=== PATIENT | female | born 1955 | race Caucasian/White ===

== ENCOUNTER 2025-06-10 15:24 | Emergency (ER) | payer MEDICARE ==
[2025-06-10] VITALS (7 sets, daily range): PULSE 86–126; RESP 28–51; O2SAT 80–89
[~2025-06-10] VITALS: Ht 157.5 cm; Wt 48.5 kg
[~2025-06-10 15:24] MED LIST: 0.9% SODIUM CHLORIDE 1,000 ML BAG ONE; 0.9% SODIUM CHLORIDE 10 ML SYRINGE IVP ONE; ATROPINE SULFATE 0.1 MG/ML 10 ML SYRINGE IVP ONE; CALCIUM CHLORIDE 100 MG/ML 10 ML SYRINGE IVP ONE; EPINEPHrine 1:10,000 [1 MG/10 ML] SYRINGE ONE; SODIUM BICARBONATE [ADULT] 8.4% 50 MEQ/50 ML SYRINGE IVP ONE
[2025-06-10] MEDS: ALBUTEROL SULFATE 2.5 MG/0.5 ML NEB SOLUTION NEB ONE (15:50)
[2025-06-10] MEDS: IPRATROPIUM BROMIDE 0.5 MG/2.5 ML NEB SOLUTION NEB ONE (15:51)
[2025-06-10 15:56] LABS: PLATELET COUNT (AUTO) 215 K/uL (150-450); RED BLOOD CELL COUNT(AUTO) 4.01 MIL/uL (4.00-5.20); RED CELL DISTRIBUTION WIDTH 18.3 % (11.5-14.5); WHITE BLOOD COUNT (AUTO) 10.0 K/uL (4.5-11.0)
[2025-06-10 16:02] LABS: CALCIUM, TOTAL 8.5 mg/dL (8.8-10.5); CREATININE 0.97 mg/dL (0.60-1.30); GLOMERULAR FILTR. RATE CALC 57 mL/min (>60); GLUCOSE,RANDOM 126 mg/dL (70-110); SODIUM SERUM 132 mmol/L (136-145); UREA NITROGEN, BLOOD 25 mg/dL (7-18)
[2025-06-10 16:08] LABS: ASPARTATE AMINOTRANSFERASE 211.0 U/L (15-37); CREATINE KINASE, TOTAL ONLY 100.0 U/L (26-192); TOTAL PROTEIN, SERUM 7.0 g/dL (6.4-8.2)
[2025-06-10 16:08] LABS: COVID AG,FIA SOURCE NASAL SWAB
[2025-06-10 16:14] LABS: PLATELET MORPHOLOGY COMMENT LARGE PLTS PRESENT; RBC MORPHOLOGY COMMENT NORMAL RBC MORPH; TROPONIN I-HIGH SENSITIVITY 1044 ng/L (<51)
[2025-06-10 16:16] LABS: ABG BASE EXCESS 0.4 mmol/L (-2.0-3.0); ABG CARBOXYHEMOGLOBIN 0.4 % (0.5-1.5); ABG HCO3 24.0 mmol/L (21.0-28.0); ABG METHEMOGLOBIN 0.6 % (0.0-1.5); ABG OXYGEN CONTENT 16.3 mL/dL (15.0-23.0); ABG OXYGEN SATURATION 89.4 % (94.0-98.0); ABG OXYHEMOGLOBIN 88.5 % (94.0-98.0); ABG PCO2 54 mmHg (32.0-45.0); ABG PH 7.314 (7.350-7.450); ABG TOTAL HEMOGLOBIN 13.1 G/dL (12.0-16.0); FRACTIONATED INSPIRED OXYGEN 100.0 % (21-100.0); PO2, ARTERIAL BG 64.2 mmHg (83.0-108.0); SOURCE, BLOOD GAS ARTERIAL; TEMPERATURE, FAHRENHEIT, BG 98.6 FAHREN (96.0-98.6)
[2025-06-10 16:17] LABS: ABG A-A DIFF O2 595.3 mmHg (10-20.0); ALLEN TEST, BLOOD GAS Positive; O2 DEVICE,BLOOD GAS BIPAP (ROOM AIR); PATIENT RATE, BG 35.0 min.; SET RATE, BG 12.0 min.; SITE, BLOOD GAS RT RADIAL; SPONTANEOUS VT, BG 500 ml
[2025-06-10 16:26] LABS: SARS-COV2 (COVID) ANTIGEN,FIA Negative (Negative)
[2025-06-10 16:27] LABS: INFLUENZA TYPE A NEGATIVE FOR TYPE A (NEGATIVE); INFLUENZA TYPE B NEGATIVE FOR TYPE B (NEGATIVE)
[2025-06-10] MEDS ORDERED: FUROSEMIDE 20 MG/2 ML VIAL ONE (17:36)
[2025-06-10] MEDS: FUROSEMIDE 20 MG/2 ML VIAL IVP ONE (17:43)
[2025-06-10 18:05] LABS: TROPONIN I-HIGH SENSITIVITY 916 ng/L (<51)
[2025-06-10] MEDS: DEXMEDETOMIDINE 400 MCG/NS 100 ML IV PRN (18:26)
[2025-06-10] MEDS ORDERED: NOREPINEPHRINE 8 MG/0.9 % NACL 250 ML IV PRN (19:45)
[2025-06-10 19:51] LABS: CALCIUM, TOTAL 8.6 mg/dL (8.8-10.5); CREATININE 1.04 mg/dL (0.60-1.30); GLOMERULAR FILTR. RATE CALC 53.0 mL/min (>60); GLUCOSE,RANDOM 95.0 mg/dL (70-110); SODIUM SERUM 133.0 mmol/L (136-145); UREA NITROGEN, BLOOD 27.0 mg/dL (7-18)
[2025-06-10] MEDS ORDERED: ZOLPIDEM TARTRATE 5 MG TABLET PO PRN (20:30)
[2025-06-10] MEDS ORDERED: MAGNESIUM HYDROXIDE SUSPENSION 30 ML UDCUP PO PRN (20:30)
[2025-06-10] MEDS ORDERED: ONDANSETRON HCL 4 MG/2 ML VIAL IVP PRN (20:30)
[2025-06-10] MEDS ORDERED: HYDROCODONE/ACETAMINOPHEN 5-325 MG TABLET PO PRN (20:30)
[2025-06-10] MEDS ORDERED: IPRATROPIUM BROMIDE 0.5 MG/2.5 ML NEB SOLUTION NEB PRN (20:30)
[2025-06-10] MEDS ORDERED: ACETAMINOPHEN 325 MG TABLET PO PRN (20:30)
[2025-06-10] MEDS ORDERED: ALBUTEROL SULFATE 2.5 MG/0.5 ML NEB SOLUTION NEB PRN (20:30)
[2025-06-10] MEDS ORDERED: MORPHINE SULFATE 4 MG/ML SYRINGE IVP PRN (20:30)
[2025-06-10] MEDS ORDERED: BISACODYL 10 MG RECTAL RECTAL SUPPOSITORY PR PRN (20:30)
[2025-06-10] MEDS: PHENYLEPHRINE 200 MG/D5%-WATER 250 ML IV PRN (20:49)
[2025-06-10 20:54] LABS: ABG BASE EXCESS -5.8 mmol/L (-2.0-3.0); ABG CARBOXYHEMOGLOBIN 0.4 % (0.5-1.5); ABG HCO3 19.7 mmol/L (21.0-28.0); ABG METHEMOGLOBIN 0.6 % (0.0-1.5); ABG OXYGEN CONTENT 16.3 mL/dL (15.0-23.0); ABG OXYGEN SATURATION 88.9 % (94.0-98.0); ABG OXYHEMOGLOBIN 88.0 % (94.0-98.0); ABG PCO2 45 mmHg (32.0-45.0); ABG PH 7.284 (7.350-7.450); ABG TOTAL HEMOGLOBIN 13.2 G/dL (12.0-16.0); FRACTIONATED INSPIRED OXYGEN 100.0 % (21-100.0); PO2, ARTERIAL BG 63.8 mmHg (83.0-108.0); SOURCE, BLOOD GAS ARTERIAL; TEMPERATURE, FAHRENHEIT, BG 98.6 FAHREN (96.0-98.6)
[2025-06-10 20:55] LABS: ALLEN TEST, BLOOD GAS POS; SITE, BLOOD GAS RT BRACHIAL
[2025-06-10 20:56] LABS: O2 DEVICE,BLOOD GAS BIPAP (ROOM AIR)
[2025-06-10 20:59] LABS: SPONTANEOUS VT, BG 547 ml
[2025-06-10] MEDS: GuaiFENesin SR 600 MG ER TABLET PO SCH (21:00)
[2025-06-10] MEDS: BENZONATATE 100 MG CAPSULE PO SCH (21:00)
[2025-06-10] MEDS: DOCUSATE SODIUM 100 MG CAPSULE PO SCH (21:00)
[2025-06-10] MEDS ORDERED: ETOMIDATE 2 MG/ML 10 ML VIAL ONE (21:04)
[2025-06-10] MEDS ORDERED: ROCURONIUM BROMIDE 10 MG/ML 5 ML VIAL ONE (21:05)
[2025-06-10] MEDS ORDERED: EPINEPHrine 1:10,000 [1 MG/10 ML] SYRINGE ONE (21:08)
[2025-06-10] MEDS ORDERED: PHENYLEPHRINE HCL IN 0.9% NACL 400 MCG/10 ML SYRINGE IVP ONE ×2 (21:08→23:44)
[2025-06-10] MEDS: NOREPINEPHRINE 8 MG/0.9 % NACL 250 ML IV PRN (21:25)
[2025-06-10] MEDS: CefTRIAXone 1 GM/DEXTROSE 50 ML IV SCH (21:48)
[2025-06-10] MEDS: DEXTROSE 50%-WATER 25 GM/50 ML SYRINGE IVP ONE ×2 (21:51→22:38)
[2025-06-10 22:00] LABS: APPEARANCE,URINE CLEAR (CLEAR); GLUCOSE, URINE (UA) NEGATIVE (NEGATIVE); LEUKOCYTE ESTERASE ,URINE NEGATIVE (NEGATIVE); NITRATE,URINE NEGATIVE (NEGATIVE); OCCULT BLOOD,URINE NEGATIVE (NEGATIVE); SPECIFIC GRAVITIY, URINE 1.016 (1.003-1.030)
[2025-06-10 22:06] LABS: ABG BASE EXCESS -5.9 mmol/L (-2.0-3.0); ABG CARBOXYHEMOGLOBIN 0.3 % (0.5-1.5); ABG HCO3 17.2 mmol/L (21.0-28.0); ABG METHEMOGLOBIN 1.5 % (0.0-1.5); ABG OXYGEN CONTENT 4.1 mL/dL (15.0-23.0); ABG OXYHEMOGLOBIN 23.8 % (94.0-98.0); ABG TOTAL HEMOGLOBIN 12.1 G/dL (12.0-16.0); FRACTIONATED INSPIRED OXYGEN 100.0 % (21-100.0); SOURCE, BLOOD GAS ARTERIAL; TEMPERATURE, FAHRENHEIT, BG 98.8 FAHREN (96.0-98.6)
[2025-06-10 22:07] LABS: ABG PCO2 85 mmHg (32.0-45.0); ABG PH 7.075 (7.350-7.450)
[2025-06-10 22:08] LABS: ABG A-A DIFF O2 603.3 mmHg (10-20.0); ABG OXYGEN SATURATION 24.2 % (94.0-98.0); O2 DEVICE,BLOOD GAS VENT (ROOM AIR); PATIENT RATE, BG 28.0 min.; PEEP,BG 5 cm H2O; PO2, ARTERIAL BG 24.9 mmHg (83.0-108.0); SET RATE, BG 28.0 min.; SITE, BLOOD GAS LFT FEMORAL; VENT MODE, BG PC (ROOM AIR); VT, ABG 346 ml
[2025-06-10 22:09] LABS: INSIPIRATORY PRESSURE, BG 30 cm H2O; INSPIRATORY TIME, BG 0.9 SEC
[2025-06-10] MEDS: ALBUTEROL SULFATE 2.5 MG/0.5 ML 5 ML NEB SOLUTION NEB ONE (22:25)
[2025-06-10] MEDS: INSULIN REGULAR, HUMAN 100 UNITS/ML IVP ONE (22:35)
[2025-06-10 22:56] LABS: GLUCOMETER DEV NAME(LOC) ER.7; GLUCOSE,POINT OF CARE 241 MG/DL (70-110)
[2025-06-10 22:56] LABS: GLUCOMETER DEV NAME(LOC) ER.7; GLUCOSE,POINT OF CARE 50 MG/DL (70-110)
[2025-06-10] MEDS: ALBUMIN HUMAN 25%-12.5GM/50ML 50 ML IV SCH (23:05)
[2025-06-10] MEDS: AZITHROMYCIN 500 MG/NS 250 ML IV SCH (23:09)
[2025-06-10] MEDS: SODIUM ZIRCONIUM CYCLOSILICATE 10 GM POWDER PACKET NG ONE (23:25)
[2025-06-10 23:41] LABS: GLUCOMETER DEV NAME(LOC) ER.7; GLUCOSE,POINT OF CARE 259 MG/DL (70-110)
[2025-06-10] MEDS: VASOPRESSIN 40 UNITS in DEXTROSE 5%-WATER 98 ML IV PRN (23:50)
[2025-06-11] MEDS ORDERED: HEPARIN SODIUM,PORCINE 5,000 UNITS/ML VIAL SQ SCH
[2025-06-11] MEDS: DOPamine 400MG/D5W[STANDARD] 250 ML IV PRN (00:13)
[2025-06-11 00:32] LABS: ABG BASE EXCESS -10.2 mmol/L (-2.0-3.0); ABG CARBOXYHEMOGLOBIN 0.2 % (0.5-1.5); ABG METHEMOGLOBIN 2.7 % (0.0-1.5); ABG OXYGEN CONTENT 2.1 mL/dL (15.0-23.0); ABG OXYGEN SATURATION < 0.0 % (94.0-98.0); ABG OXYHEMOGLOBIN 13.5 % (94.0-98.0); ABG TOTAL HEMOGLOBIN 10.8 G/dL (12.0-16.0); FRACTIONATED INSPIRED OXYGEN 100.0 % (21-100.0); SOURCE, BLOOD GAS ARTERIAL; TEMPERATURE, FAHRENHEIT, BG 98.3 FAHREN (96.0-98.6)
[2025-06-11 00:33] LABS: ABG PCO2 113 mmHg (32.0-45.0); ABG PH 6.915 (7.350-7.450); PO2, ARTERIAL BG 18.8 mmHg (83.0-108.0); SITE, BLOOD GAS ARTERIAL LINE
[2025-06-11 00:34] LABS: INSIPIRATORY PRESSURE, BG 30 cm H2O; O2 DEVICE,BLOOD GAS VENT (ROOM AIR); PATIENT RATE, BG 30.0 min.; PEEP,BG 8 cm H2O; SET RATE, BG 30.0 min.; SPONTANEOUS VT, BG 407 ml; VENT MODE, BG PC (ROOM AIR)
[2025-06-11] MEDS ORDERED: SODIUM BICARBONATE 150 MEQ in DEXTROSE 5%-WATER 850 ML IV ONE (00:45)
[2025-06-11] MEDS: SODIUM BICARBONATE [ADULT] 8.4% 50 MEQ/50 ML SYRINGE IVP ONE (01:07)
[2025-06-11] MEDS: IPRATROPIUM BROMIDE 0.5 MG/2.5 ML NEB SOLUTION NEB SCH (01:08)
[2025-06-11] MEDS: ALBUTEROL SULFATE 2.5 MG/0.5 ML NEB SOLUTION NEB SCH (01:09)
[2025-06-11] MEDS: EPINEPHrine 5 MG in DEXTROSE 5%-WATER 245 ML IV PRN (01:14)
[2025-06-11 01:20] VITALS: BP 79/53; PULSE 93; RESP 30; TEMP 96.8; O2SAT 73
[2025-06-11] MEDS ORDERED: EPINEPHrine 1:10,000 [1 MG/10 ML] SYRINGE ONE (01:52)
[2025-06-11] MEDS ORDERED: IPRATROPIUM BROMIDE 0.5 MG/2.5 ML NEB SOLUTION NEB SCH (02:00)
[2025-06-11] MEDS ORDERED: ALBUTEROL SULFATE 2.5 MG/0.5 ML NEB SOLUTION NEB SCH (02:00)
[2025-06-11] MEDS ORDERED: PANTOPRAZOLE SODIUM 40 MG DR TABLET PO SCH (09:00)
[2025-06-11] MEDS ORDERED: BUDESONIDE 0.5 MG/2 ML NEB SOLUTION NEB SCH (10:35)
[2025-06-12 06:26] LABS: ABG HCO3 0.0 mmol/L (21.0-28.0)
== END 2025-06-11 07:35 ==
LOC: EMS 15:24 → UNDOADMIN 20:35 → EDH 20:35
DX: F41.9 Anxiety disorder, unspecified (principal); J44.89 Other specified chronic obstructive pulmonary disease; E11.9 Type 2 diabetes mellitus without complications; K21.9 Gastro-esophageal reflux disease without esophagitis; E78.00 Pure hypercholesterolemia, unspecified; Z20.822 Contact with and (suspected) exposure to COVID-19
CPT/HCPCS: 80048; 80076; 81003; 82550; 82962; 83880; 84484; 85025; 85610; 85730; 87804; 36415; 93306; 82805 ×2; 94660; 94640; 71045 ×2; 93005; 96365; 96366; 96367; 96376; 96368; 96375 ×2; 31500; 99291; 87426; J0461; J0456; J0696; J1265; J0169 ×2; J3490 ×7; J1938; J1815; J2919 ×2; P9047; J7060 ×3; J7030; J2370; G0378; J7613